=== PATIENT | female | born 1990 ===

== ENCOUNTER 2020-12-09 10:09 | Outpatient (CLI) | payer OTHER | END 2020-12-09 11:00 | disposition home or self-care (01) | LOC: PRENATAL 10:09 | PROVIDERS: ATTEND Obstetrics & Gynecology Maternal & Fetal Medicine | DX: O35.0XX1 Maternal care for (suspected) central nervous system malformation in fetus, fetus 1 (principal); O35.3XX1 Maternal care for (suspected) damage to fetus from viral disease in mother, fetus 1; O98.512 Other viral diseases complicating pregnancy, second trimester; O99.891 Other specified diseases and conditions complicating pregnancy; O34.42 Maternal care for other abnormalities of cervix, second trimester; Z36.89 Encounter for other specified antenatal screening; Z3A.19 19 weeks gestation of pregnancy ==

== ENCOUNTER 2021-03-03 14:58 | Outpatient (CLI) | payer OTHER | END 2021-03-03 15:48 | disposition home or self-care (01) | LOC: PRENATAL 14:58 | PROVIDERS: ATTEND Obstetrics & Gynecology Maternal & Fetal Medicine | DX: O26.843 Uterine size-date discrepancy, third trimester (principal); O99.891 Other specified diseases and conditions complicating pregnancy; O35.0XX1 Maternal care for (suspected) central nervous system malformation in fetus, fetus 1; Z36.89 Encounter for other specified antenatal screening; Z3A.31 31 weeks gestation of pregnancy ==